=== PATIENT | male | born 1970 | race Hispanic/Latino ===

== ENCOUNTER 2021-12-17 06:36 | Day surgery (SDC) | payer OTHER ==
[2021-12-15 09:51] LABS: BASOPHILS % (AUTO) 0.4 % (0.0-5.0); EOSINOPHILS % (AUTO) 4.7 % (0.0-8.0); HEMATOCRIT 45.1 % (42-54); LYMPHOCYTES % (AUTO) 27.4 % (21.0-51.0); MEAN CORPUSCULAR HEMOGLOBIN 32.3 pg (27.0-33.0); MEAN CORPUSCULAR VOLUME 92.2 fL (79-99); NEUTROPHILS % (AUTO) 57.2 % (40.0-77.0); PLATELET COUNT (AUTO) 225 K/uL (130-400); RED BLOOD CELL COUNT(AUTO) 4.89 MIL/uL (4.50-6.20); RED CELL DISTRIBUTION WIDTH 11.9 % (11.0-15.5)
[2021-12-15 10:04] LABS: CREATININE 1.1 mg/dL (0.5-1.5); POTASSIUM 3.9 mmol/L (3.5-5.1)
[2021-12-16 09:20] VITALS: BP 116/84
[2021-12-17] VITALS (14 sets, daily range): BP systolic 100–141; BP diastolic 62–86
[~2021-12-17] VITALS: Ht 167.6 cm; Wt 86.8 kg
[2021-12-17] MEDS: CEFAZOLIN SODIUM 1 GM VIAL IVP SCH ×2 (07:15→08:30)
[2021-12-17] MEDS ORDERED: SUCCINYLCHOLINE CHLORIDE 20 MG/ML 10 ML VIAL ONE (08:15)
[2021-12-17] MEDS ORDERED: FENTANYL CITRATE PF 50 MCG/1 ML 2ML VIAL ONE (08:15)
[2021-12-17] MEDS ORDERED: PROPOFOL 10 MG/ML 20ML VIAL IV ONE (08:15)
[2021-12-17] MEDS ORDERED: ROCURONIUM 10MG/1ML SYR 10 MG/ML ML ONE (08:16)
[2021-12-17] MEDS ORDERED: MIDAZOLAM HCL 1 MG/ML 2ML VIAL ONE (08:16)
[2021-12-17] MEDS: LACTATED RINGERS 1000ML 1,000 ML IV ONE ×2 (09:21→09:39)
[2021-12-17] MEDS ORDERED: GLYCOPYRROLATE 1 MG/5 ML SYRINGE ONE (09:23)
[2021-12-17] MEDS ORDERED: NEOSTIGMINE 5MG/5ML SYR IV ONE (09:24)
[2021-12-17] MEDS ORDERED: KETOROLAC 30MG VIAL (30MG/ML) ONE (09:43)
[2021-12-17] MEDS ORDERED: NAPR-1023 PO (09:43)
[2021-12-17] MEDS ORDERED: ACET-2079 PO (10:18)
[2021-12-17] MEDS ORDERED: CEPH500B PO (10:18)
== END 2021-12-17 11:07 | disposition home or self-care (01) ==
LOC: DAH 06:36
PROVIDERS: ATTEND Orthopaedic Surgery
DX: M23.321 Other meniscus derangements, posterior horn of medial meniscus, right knee (principal); E66.9 Obesity, unspecified; Z98.890 Other specified postprocedural states; Z82.49 Family history of ischemic heart disease and other diseases of the circulatory system; Z83.3 Family history of diabetes mellitus; Z82.61 Family history of arthritis; Z87.891 Personal history of nicotine dependence; Z79.01 Long term (current) use of anticoagulants; Z79.899 Other long term (current) drug therapy
CPT/HCPCS: 87426; 80048; 85025; 36415; 29881; A4649; J7120; J3010; J0690; J3490; J2710; J0330; J2250; J2704; J1885; A6223; A5120; A4215; A4223; A4222; A4221; A4663; A6450